=== PATIENT | male | born 1955 | race Caucasian/White ===

== ENCOUNTER 2020-09-11 11:59 | Emergency (ER) | payer OTHER, SELFPAY ==
[2020-09-11 12:00] VITALS: BP 147/72; PULSE 79; RESP 15; TEMP 36.9; O2SAT 94; BMI 31.1
[2020-09-11 12:12] VITALS: BP 147/72; PULSE 79; RESP 15; TEMP 36.8; O2SAT 94; BMI 31.1
--- NOTE | 2020-09-11 12:18 | PC.NURSE ---
Pt states he uses [facility] in [place].
[2020-09-11 12:26] VITALS: BP 148/81; PULSE 73; O2SAT 93
--- NOTE | 2020-09-11 12:29 | [facility].EDEPIS ---
ED Disposition Clinical Impression: Epistaxis Disposition: Home, Self-Care Condition on Discharge: Good Instructions: DI for Nosebleed Referrals: Alverto Nguyen [Primary Care Provider] - - Critical Care Critical Care Time: No Attestation: On , the high probability of a clinically significant, sudden or life threatening deterioration of the following system(s) required my full and direct attention, intervention and personal management. The time I documented below is in addition to time spent performing reported procedures but includes the following listed in this critical care notation. Medical Decision Making - Medical Records Medical records reviewed: Yes: I reviewed the patient's medical records. - Amrit Inquiry Pt receiving controlled substance: No Vital Signs: 09/11/20 12:00 09/11/20 12:12 09/11/20 12:26 Temperature 98.5 F 98.2 F Temperature Source Oral Oral Pulse Rate [Right Brachial] 79 79 73 Respiratory Rate 15 15 Blood Pressure [Right Arm] 147/72 H 147/72 H 148/81 H Blood Pressure Mean [Right Arm] 97 97 103 02 Sat by Pulse Oximetry 94 L 94 L 93 L Oxygen Delivery Method Room Air Room Air Epistaxis HPI - General Chief complaint: Epistaxis Stated complaint: nose bleed Time Seen by Provider: 09/11/20 12:20 Mode of Arrival: Ambulatory Source of Information: Patient, Spouse Limitations: No Limitations Description of Symptoms (Recalled from ER Triage Doc. by RN): Pt reports a nose bleed that started earlier this morning, and he reports he had 2 massive nose bleeds today, the last one stopped right as he pulled into the ER parking lot. Reports he passed a huge clot . Pt denies taking blood thinners, reports he taxes an ASA every other day. Reports he had been on an antibiotic for a nose infection , and was recently started on Metformin, no other medication changes. Denies any sick contacts. No recent travel. Denies any pain. - History of Present Illness HPI Narrative: This is a 65-year-old male that presents after having 2 episodes of epistaxis this morning. Patient reports 2 large-volume epistaxis episodes from the left nostril after cleaning out his nose. Patient reports he has been on antibiotics for sinusitis. Epistaxis did resolve following direct pressure. No current bleeding. Patient does report taking 81 mg of aspirin daily. He did report that he stopped this medication 2 days ago. He reports having intermittent epistaxis over the last 2 years. He has not seen an ENT. No current symptoms. Patient did report the blood primarily entered the mouth instead of coming from the nose. - Related Data Allergies Allergy/AdvReac Type Severity Reaction Status Date / Time nitroglycerin Allergy Severe Hypotension Verified 09/11/20 12:18 [facility] History - Hepatitis A Screen Drug use history?: No High risk sexual behaviors?: No History of sexually transmitted infection?: No Currently employed?: No Childcare worker?: No Do you have indoor plumbing?: Yes Do you have electricity?: Yes Attestation statement:: This patient has been screened for Hepatitis A risk factors. I have reviewed the patient's past medical history: Yes Medical History: Reports:: Diabetes Mellitus Type 2 Denies:: Cancer, MRSA Amputation: No - Social History Alcohol Intake: never Occupational Status: retired Housing: house Household Members: spouse ROS Obtained: Yes All systems reviewed & no additional complaints Physical Exam - General General appearance: alert, in no apparent distress - Head Head exam: atraumatic, normocephalic - Eye Eye exam: Present: normal appearance, PERRL, EOMI - ENT ENT exam: Present: normal exam, normal oropharynx, mucous membranes moist, other (no active bleeding noted) - Neck Neck exam: Present: normal inspection - Chest Chest inspection: Present: normal inspection, symmetric chest wall rise - Respiratory Respiratory exam: Present: normal tuyet
[2020-09-11 12:38] VITALS: BP 137/78; PULSE 72; RESP 15; TEMP 36.7; O2SAT 97
== END 2020-09-11 12:39 | disposition home or self-care (01) ==
PROVIDERS: Emergency Provider Emergency Medicine; PCP Family Medicine
DX: R04.0 Epistaxis (principal); E11.9 Type 2 diabetes mellitus without complications; Z79.84 Long term (current) use of oral hypoglycemic drugs
CPT/HCPCS: 99282

== ENCOUNTER 2025-06-17 16:00 | Outpatient (RCR) | payer OTHER, SELFPAY | END 2025-06-17 23:59 | disposition home or self-care (01) | LOC: PT 16:00 | PROVIDERS: Visit Provider Family Medicine | DX: M54.16 Radiculopathy, lumbar region (principal) | CPT/HCPCS: 97110; 97162 ==

== ENCOUNTER 2025-07-13 08:00 | Outpatient (RCR) | payer OTHER, SELFPAY | END 2025-07-13 23:59 | disposition home or self-care (01) | LOC: PT 08:00 | PROVIDERS: Visit Provider Family Medicine | DX: E11.40 Type 2 diabetes mellitus with diabetic neuropathy, unspecified (principal); M54.16 Radiculopathy, lumbar region | CPT/HCPCS: 97110; 97530 ==